=== PATIENT | male | born 1990 | race Caucasian/White ===

== ENCOUNTER 2023-07-04 17:15 | Emergency (ER) | payer OTHER, SELFPAY ==
[2023-07-04 17:22] VITALS: BP 125/83; PULSE 98; RESP 14; TEMP 36.7; O2SAT 99; BMI 34.9
--- NOTE | 2023-07-04 17:41 | DI.RAD.S_ITS ---
PROCEDURE: XR CHEST 2V INDICATIONS: congestion, fever TECHNIQUE: 2 views of the chest were acquired. COMPARISON: [facility], CR, XR CHEST 1 VIEW, 07/02/2021, 21:37. FINDINGS: Surgical changes and devices: None. Lungs and pleura: Lungs are clear. No pleural effusions or pneumothorax. Mediastinum: Mediastinal contours are normal. Heart size is normal. Bones and chest wall: No suspicious bony abnormalities. Soft tissues appear unremarkable. IMPRESSION: No acute cardiopulmonary abnormality is seen. Dictated by: Ethan Kaur M.D. on 07/04/2023 at 17:59 Approved by: Ethan Kaur M.D. on 07/04/2023 at 17:59
--- NOTE | 2023-07-04 17:55 | ED.URI ---
HPI - URI/Sore Throat <Glory Ghotra PA-C - Last Filed: 07/04/23 18:11> General Chief Complaint: Upper Respiratory Symptoms Stated Complaint: poss flu t-7 Time Seen by Provider: 07/04/23 17:36 Source: patient Mode of arrival: Ambulatory History of Present Illness HPI Narrative: 32-year-old male with past medical history diabetes presents to the ED with 1 week of URI symptoms. Patient is complaining of fever, chills, sore throat, nasal congestion, sore throat, cough. Patient denies chest pain, shortness of breath, lightheadedness, dizziness, syncope, nausea, vomiting, diarrhea. Related Data Home Medications Medication Instructions Recorded Confirmed No Known Home Medications 07/04/23 07/04/23 Allergies Allergy/AdvReac Type Severity Reaction Status Date / Time Penicillins Allergy Intermediate Hives Verified 07/04/23 17:26 Review of Systems <Glory Ghotra PA-C - Last Filed: 07/04/23 18:11> Constitutional Constitutional: Reports chills, Denies fatigue, Reports fever(s), Denies frequent falls, Denies lethargy and Denies weakness Eyes Eyes: Denies change in vision, Denies eye discharge, Denies irritation and Denies loss of vision ENT Ears, Nose, Mouth, and Throat: Denies change in voice, Denies dizziness, Denies neck pain, Reports sore throat and Denies throat swelling Cardiovascular Cardiovascular: Denies chest pain, Denies irregular heart rhythm, Denies lightheadedness, Denies palpitations, Denies dyspnea, Denies dyspnea on exertion and Denies orthopnea Respiratory Respiratory: Reports cough, Denies dyspnea, Denies dyspnea on exertion and Denies wheezing Gastrointestinal Gastrointestinal: Denies abdominal pain, Denies change in bowel habits, Denies diarrhea, Denies nausea and Denies vomiting Musculoskeletal Musculoskeletal: Denies neck pain and Denies numbness Integumentary/Breasts Skin/Breast: Denies pruritus, Denies erythema, Denies rash and Denies wounds Neurologic Neurologic: Denies behavioral changes, Denies confusion, Denies dizziness, Denies frequent falls, Denies loss of vision, Denies numbness and Denies weakness Psychiatric Psychiatric: Denies anxiety, Denies behavioral changes, Denies confusion, Denies depression, Denies homicidal ideation and Denies suicidal ideation Endocrine Endocrine: Denies fatigue, Denies flushing and Denies palpitations Hematologic/Lymphatic Hematologic/Lymphatic: Denies easy bruising Allergic/Immunologic Allergic/Immunologic: Denies urticaria, Denies throat swelling and Denies wheezing Patient History <Glory Ghotra PA-C - Last Filed: 07/04/23 18:11> Medical History (Updated 07/04/23 @ 18:10 by Glory Ghotra PA-C) DVT (deep venous thrombosis) COVID-19 Social History Smoking Status: Never smoker Smoking Status: Never smoker alcohol intake frequency: 0-2 drinks per day Substance Use Type: does not use Exam <Glory Ghotra PA-C - Last Filed: 07/04/23 18:11> Narrative Exam Narrative: Const General:?cooperative, healthy appearing and comfortable HENMI Head:?normal to inspection Ears:?hearing grossly normal bilaterally Nose:?external nose normal Face and sinus:?normal facial exam and sinuses nontender Mouth:?oral mucosae normal Throat:?posterior oropharynx normal Eyes General:?appearance normal, both eyes and all related structures Neck Neck:?normal visual inspection and no lymphadenopathy noted Resp Effort & Inspection:?normal respiratory effort Auscultation:?clear to auscultation bilaterally Cardio Rate:?regular rate Rhythm:?regular rhythm Neuro General:?patient alert, patient awake and patient oriented x3 Initial Vital Signs Initial Vital Signs: Vital Signs Temperature 98.0 F 07/04/23 17:22 Pulse Rate 98 H 07/04/23 17:22 Respiratory Rate 14 07/04/23 17:22 Blood Pressure 125/83 07/04/23 17:22 Pulse Oximetry 99 07/04/23 17:22 Oxygen Delivery Method Room Air 07/04/23 17:22 <Ana Kaur MD - Last Filed: 07/05/23 06:52> Initial Vital Signs Initial Vital Signs: Vital Signs Temperature 98.0 F 07/04/23 17:22 Pulse Rate 98 H 07/04/23 17:22 Respiratory Rate 14 07/04/23 17:22 Blood Pressure 125/83 07/04/23 17:22 Pulse Oximetry 99 07/04/23 17:22 Oxygen Delivery Method Room Air 07/04/23 17:22 Course <Glory Ghotra PA-C - Last Filed: 07/04/23 18:11> Orders Ordered: ED Orders 07/04/23 17:28 COVID19 -Nasal RAPID Stat 07/04/23 17:41 XR chest 2V Stat Vital Signs Vital signs: Vital Signs - 8 hr 07/04/23 17:22 Temperature 98.0 F Pulse Rate 98 H Respiratory Rate 14 Blood Pressure 125/83 Pulse Oximetry 99 Oxygen Delivery Method Room Air <Ana Kaur MD - Last Filed: 07/05/23 06:52> Orders Ordered: ED Orders 07/04/23 17:28 COVID19 -Nasal RAPID Stat 07/04/23 17:41 XR chest 2V Stat Vital Signs Vital signs: Vital Signs - 8 hr 07/04/23 17:22 Temperature 98.0 F Pulse Rate 98 H Respiratory Rate 14 Blood Pressure 125/83 Pulse Oximetry 99 Oxygen Delivery Method Room Air MDM - URI/Sore Throat <Glory Ghotra PA-C - Last Filed: 07/04/23 18:11> Lab Data Labs: Lab Results 07/04/23 Range/Units 17:28 SARS-CoV-2 (PCR) Negative (Negative) MDM Narrative Medical decision making narrative: 32-year-old male with past medical history diabetes presents to the ED with 1 week of URI symptoms. Concern for COVID-19 infection versus influenza versus other viral URI versus pneumonia versus other. Patient states that he has been hospitalized with COVID prior to this and had to be intubated. Patient is also diabetic and appears not to be taking any medications for it. Will obtain chest x-ray. Will reassess. COVID-19 negative. Chest x-ray negative for acute findings. Patient's symptoms are likely due to a viral URI. Supportive measures discussed with patient. ED return precautions discussed with patient. Patient verbalized understanding. Medical records reviewed: Yes <Ana Kaur MD - Last Filed: 07/05/23 06:52> Lab Data Labs: Lab Results 07/04/23 Range/Units 17:28 SARS-CoV-2 (PCR) Negative (Negative) Discharge Plan Departure Patient Disposition: Home Clinical Impression: Upper respiratory infection Instructions: DI for Viral Upper Respiratory Infection -- Adult Activity Restrictions/Additional Instructions: You were evaluated in the ED today for upper respiratory symptoms. Your chest x-ray is normal. Your COVID test is negative. You may take [id number] medications for cough, congestion. You may take ibuprofen, Tylenol for aches and pains. Please stay well hydrated. Please follow-up with your PCP as soon as possible. Return to the ED if you experience any chest pain, shortness of breath. Prescriptions: No Action No Known Home Medications Stand Alone Forms: Patient Portal/API ED Sign-out <Ana Kaur MD - Last Filed: 07/05/23 06:52> Cosign ED Attending Cosignature Attestation: I did not see this patient. I was available all times for consultation.
[2023-07-04 18:07] LABS: COVID19 -Nasal RAPID Negative (Negative)
== END 2023-07-04 18:19 | disposition home or self-care (01) ==
PROVIDERS: Emergency Medicine; Emergency Provider Student in an Organized Health Care Education/Training Program
DX: J06.9 Acute upper respiratory infection, unspecified (principal); Z20.822 Contact with and (suspected) exposure to COVID-19
CPT/HCPCS: 71046; 87635; 99283; C9803